=== PATIENT | male | born 1945 | race Caucasian/White ===

== ENCOUNTER 2019-07-08 14:58 | Inpatient (IN) ==
[2019-07-08] MEDS ORDERED: VERSED IV ONE ×2 (15:12→15:13)
[2019-07-08] MEDS ORDERED: NORCURON IV ONE (15:13)
[2019-07-08] MEDS ORDERED: MORPHINE IV ONE (15:15)
[2019-07-08] MEDS ORDERED: VERSED 100 MG in NS 80 ML IV SCH (15:15)
[2019-07-08] MEDS ORDERED: VERSED ONE (15:20)
--- NOTE | 2019-07-08 15:24 | Diag Imaging Result Doc PS360 ---
EXAM: CHEST-1 VIEW 07/08/2019 HISTORY: ET TUBE placement TECHNIQUE: AP portable supine at 1518 COMMENT: There is an endotracheal tube with its tip slightly below the thoracic inlet and an NG tube with its tip in the stomach. There is no evidence of acute cardiac or pulmonary disease. There are no previous studies. The regional skeleton appears to be intact. IMPRESSION: No evidence of acute disease. Electronically signed by Mani Santos 07/08/2019 3:22 PM
[2019-07-08] MEDS ORDERED: NS 1,000 ML ONE (15:26)
[2019-07-08] MEDS ORDERED: STERILE WATER INJ. ONE (15:27)
[2019-07-08 15:33] LABS: ALLEN TEST YES; BE -3.8 mmoll (-3.0-3.0); BLOOD TYPE ARTERIAL; HCO3-(ACT) 21.9 mmoll (20.0-26.0); METHB 0.8 % (0.0-1.5); O2(CT) 20.9 mL/dL (15.0-23.0); O2HB 95.7 % (95.0-99.0); PCO2(98.6) 36 mmHg (35-45); PO2(98.6) 92 mmHg (60-100); SAMPLE BLOOD; SAO2 97.6 % (95.0-100.0); SRATE 18 BPM; THB 15.5 g/dL (11.5-17.4); TVOL 550 mL; pH(98.6) 7.37 (7.35-7.45)
[2019-07-08 15:34] LABS: MODALITY VENTILATOR
[2019-07-08 15:41] LABS: BASO# 0.06 X1000 (0.0-0.2); BASO% 0.3 % (0.0-0.8); EOS# 0.12 X1000 (0.0-0.7); EOS% 0.6 % (0.0-10.0); IMM GRAN% 0.5 % (0.0-0.5); LYMPH# 4.21 X1000 (1.2-3.4); LYMPH% 21.3 % (20.5-51.1); MCH 28.1 PG (27-31); MCHC 33.3 g/dL (33-37); MCV 84.2 FL (81-99); MONO# 1.35 X1000 (0.11-0.59); MONO% 6.8 % (1.7-9.3); MPV 10.8 FL (7.4-10.4); NEUT# 13.91 X1000 (1.4-6.5); NEUT% 70.5 % (42.2-75.2); PLT 389 X1000 (130-400); RBC 6.06 XMIL (4.7-6.1); RDW 13.5 % (11.5-14.5); WBC 19.75 X1000 (4.8-10.8)
[2019-07-08 15:46] LABS: INR 1.04; PROTIME 13.7 Seconds (11.0-16.0)
[2019-07-08 15:59] LABS: ALB/GLOB RATIO 1.6; ALBUMIN 4.5 g/dL (3.5-5.0); CALCIUM 10.1 mg/dL (8.8-10.2); CREATININE 1.3 mg/dL (0.7-1.2); TOTAL BILIRUBIN 0.99 mg/dL (0.20-1.00); TOTAL PROTEIN 7.3 g/dL (6.3-8.3)
--- NOTE | 2019-07-08 16:06 | Diag Imaging Result Doc PS360 ---
EXAM: CT HEAD W/O CONTRAST 07/08/2019 HISTORY: syncope, cardiac arrest TECHNIQUE: This exam was performed using automated exposure control, adjustment of mA or kV according to patient size, and/or use of iterative reconstruction technique. COMMENT: There is no evidence of mass effect, bleed, or abnormal extra-axial fluid collection. The calvarium is intact. The visualized paranasal sinuses are clear. There are no previous studies. IMPRESSION: No evidence of acute intracranial disease. Electronically signed by Mani Santos 07/08/2019 4:04 PM
[2019-07-08] MEDS ORDERED: ZOSYN 4.5 GM in NS 100 ML IV ONE (16:40)
[2019-07-08] MEDS ORDERED: POTASSIUM CHLORIDE 40 MEQ/SWI 40 MEQ/100 ML IVPB IV ONE (16:43)
[2019-07-08] MEDS ORDERED: POTASSIUM CHLORIDE 40 MEQ in 1/2 NS 1,000 ML IV SCH (16:45)
[2019-07-08] MEDS ORDERED: DIPRIVAN 1% 1,000 MG/100 ML BOTTLE ONE (16:56)
[2019-07-08] MEDS: DIPRIVAN 1% 1,000 MG/100 ML BOTTLE IV SCH ×4 (16:59→23:49)
[2019-07-08] MEDS ORDERED: ZOFRAN IV PRN (17:02)
[2019-07-08] MEDS ORDERED: LOVENOX SUBQ SCH (17:02)
[2019-07-08] MEDS ORDERED: MORPHINE IV PRN (17:02)
[2019-07-08] MEDS ORDERED: ASPIRIN ONE (17:05)
[2019-07-08 17:22] LABS: CHOLESTEROL 212 mg/dL (0-200); HDL 39 mg/dL (35-55); LDL 142 mg/dL; TRIGLYCERIDES 153 mg/dL (39-160); VLDL 31 mg/dL
[2019-07-08 17:26] LABS: HEMOGLOBIN A1C 6.9 % (4.8-6.0)
--- NOTE | 2019-07-08 17:43 | PROVIDER DOCUMENTATION ---
This chart was entered by Alessia Avila Scribe, acting as scribe for Orion Smith DO. HPI-Cardiopulmonary Arrest - General Chief Complaint: Full Arrest Stated Complaint: FULL ARREST Time Seen by Provider: 07/08/19 14:58 Source: patient, EMS ([facility]) Unable to obtain history due to:: urgency Allergies/Adverse Reactions: Allergies Allergy/AdvReac Type Severity Reaction Status Date / Time venlafaxine Allergy ANAPHYLAXIS Verified 07/08/19 18:41 Home Medications: Home Medication List Medication Instructions Recorded Confirmed Last Taken Type Amlodipine Besylate 5 mg PO BID 07/08/19 07/08/19 Unknown History Cyanocobalamin (Vitamin B-12) 1,000 mcg PO DAILY 07/08/19 07/08/19 Unknown History [Cyanocobalamin] Insulin Aspart [Novolog] 8 unit SQ DIRECTED 07/08/19 07/08/19 Unknown History Insulin Glargine,Hum.rec.anlog 34 unit SQ QHS 07/08/19 07/08/19 Unknown History [Lantus Solostar] Lisinopril 40 mg PO DAILY 07/08/19 07/08/19 Unknown History Omeprazole 40 mg PO DAILY 07/08/19 07/08/19 Unknown History Pramipexole Di-HCl [Pramipexole 1 mg PO QHS 07/08/19 07/08/19 Unknown History Dihydrochloride] Prednisone 5 mg PO DIRECTED 07/08/19 07/08/19 Unknown History - History of Present Illness-C/P Arrest Initial Comments: per ems unknown aged male was outside cutting grass when had sudden onset of chest pain. pt came into the house and 911 was called. once ems AOS pt was in vfib, diaphoretic, n/v, chest pain and bilateral arm pain. pt was speaking to the medic when he became unresponsive and went into full arrest. pt was shocked x2 and CPR was started and lasted about 30 seconds. pt then had ROSC Reason for Code Blue?: full arrest Witnessed arrest?: Yes (by medic with [facility]) Noted by:: other (medic) Bystander CPR?: No CPR initiated before doctor arrival?: Yes (pt was in medic care when arrest occured) Down-time before ACLS?: see above Down-time before ACLS? (in minutes, if known): 0 Initial Findings: V. Fib, agonal respirations Treatment initiated prior to doctor arrival?: Initiated oxygen, Initiated BVM, Initiated CPR/thumper (30 seconds by medic on scene), Initiated defibrillated (x2) Similar Symptoms Previously?: No Recently seen or treated by another doctor?: No - Pre-hospital Treatment EMS Initial Findings:: decreased respirations EMS Initial BP: 195/80 EMS Initial EKG Rhythm: V fib then into arrest Pre-hospital Treatment: Initiated oxygen, Initiated BVM, Initiated CPR, Initiated defibrillated Review of Systems - Adult - REVIEW OF SYSTEMS - ADULT ROS:: per ems Constitutional: reports: no symptoms reported Eyes: reports: no symptoms reported Ears, Nose, Mouth & Throat: reports: no symptoms reported Cardiovascular: reports: see HPI, chest pain (per ems). denies: palpitations, syncope Gastrointestinal: reports: see HPI, nausea, vomiting Genitourinary: reports: no symptoms reported Musculoskeletal: reports: no symptoms reported Integumentary: reports: no symptoms reported Neurological: denies: dizziness/vertigo, headache/migraines Psychiatric: reports: no symptoms reported Endocrine: reports: see HPI, excessive sweating Hematologic/Lymphatic: reports: no symptoms reported Allergic/Immunologic: reports: no symptoms reported All Other Systems: Reviewed and Negative Past History - Adult - PAST MEDICAL HISTORY-ADULT Review of Records: reports: Nursing Assessment Review Major Childhood Illnesses: reports: denies history Cardiovascular: reports: denies history Respiratory: reports: denies history Gastrointestinal: reports: denies history Genitourinary: reports: denies history Musculoskeletal: reports: denies history Neurological: reports: denies history Psychiatric: reports: denies history Endocrine/Immune: reports: denies history Other Conditions: reports: denies history - IMMUNIZATION STATUS Childhood Immunizations: See Nurse Assessment Flu Vaccine: See Nurse Assessment - FAMILY HISTORY Family History: reviewed, not pertinent - SOCIAL HISTORY Smoking: non-smoker Substance Use: none/never Alcohol Use Frequency: never Living Situation: family Physical Exam-General - PHYSICAL EXAM-ADULT Initial Vital Signs Reviewed: Yes - CONSTITUTIONAL General Appearance: severe distress (prior intubation), obese, obtunded - EYES Eyes: PERRL/EOMI - HEAD, EARS, NOSE, MOUTH & THROAT HENMT: moist mucous membranes, dental decay - NECK Neck: normal inspection - RESPIRATORY Respiratory: chest non-tender, lungs clear, normal breath sounds, respiratory distress - CARDIOVASCULAR Cardiovascular: normal peripheral pulses, regular rate, rhythm - GASTROINTESTINAL (ABDOMEN) Abdominal Exam: normal bowel sounds, soft - MUSCULOSKELETAL Back Exam: other Extremity: other (same as above pt is obtunded) - SKIN Integumentary: warm/dry, pallor - PSYCHIATRIC Psych/Mental Status: other (obtunded) Progress - PLAN OF CARE/RESULTS Progress/Plan/Lab Results: Vital Signs - 8 hr 07/08/19 14:59 07/08/19 15:24 Pulse Rate 86 Respiratory Rate 19 Blood Pressure 142/93 O2 Sat by Pulse Oximetry 100 98 Laboratory Results - last 24 hr 07/08/19 07/08/19 07/08/19 15:01 15:01 15:01 WBC 19.75 H RBC 6.06 Hgb 17.0 Hct 51.0 MCV 84.2 MCH 28.1 MCHC 33.3 RDW Std Deviation 13.5 Plt Count 389 MPV 10.8 H Immature Gran % (Auto) 0.5 Neut % (Auto) 70.5 Lymph % (Auto) 21.3 [place] % (Auto) 6.8 Eos % (Auto) 0.6 Baso % (Auto) 0.3 Immature Gran # (Auto) 0.10 H Neut # (Auto) 13.91 H Lymph # (Auto) 4.21 H [place] # (Auto) 1.35 H Eos # (Auto) 0.12 Baso # (Auto) 0.06 PT 13.7 INR 1.04 Specimen Type Sample Site pH pCO2 pO2 HCO3 Base Excess Oxyhemoglobin ABG O2 Sat (Calculated) ABG O2 Saturation ABG Carboxyhemoglobin ABG Methemoglobin Jeb Test A-a O2 Difference Total Hemoglobin Lactate Blood Gas Modality Vent Mode Spontaneous Rate FiO2 % Tidal Volume PEEP Sodium 142 Potassium 3.0 L Chloride 104 Carbon Dioxide 17 L Anion Gap 21 BUN 24 H Creatinine 1.3 H Estimated GFR/1.73 m2 49 BUN/Creatinine Ratio 18 Glucose 252 H Estimat Average Glucose Hemoglobin A1c Calculated Osmolality 296 Calcium 10.1 Magnesium Total Bilirubin 0.99 AST 34 ALT 47 H Alkaline Phosphatase 103 Troponin T Total Protein 7.3 Albumin 4.5 Globulin 2.8 Albumin/Globulin Ratio 1.6 Triglycerides Cholesterol LDL Cholesterol VLDL Cholesterol, Calc HDL Cholesterol Coronary Risk Interp 07/08/19 07/08/19 07/08/19 15:01 15:01 15:01 WBC RBC Hgb Hct MCV MCH MCHC RDW Std Deviation Plt Count MPV Immature Gran % (Auto) Neut % (Auto) Lymph % (Auto) [place] % (Auto) Eos % (Auto) Baso % (Auto) Immature Gran # (Auto) Neut # (Auto) Lymph # (Auto) [place] # (Auto) Eos # (Auto) Baso # (Auto) PT INR Specimen Type Sample Site pH pCO2 pO2 HCO3 Base Excess Oxyhemoglobin ABG O2 Sat (Calculated) ABG O2 Saturation ABG Carboxyhemoglobin ABG Methemoglobin Jeb Test A-a O2 Difference Total Hemoglobin Lactate Blood Gas Modality Vent Mode Spontaneous Rate FiO2 % Tidal Volume PEEP Sodium Potassium Chloride Carbon Dioxide Anion Gap BUN Creatinine Estimated GFR/1.73 m2 BUN/Creatinine Ratio Glucose Estimat Average Glucose 151 Hemoglobin A1c 6.9 H Calculated Osmolality Calcium Magnesium 2.2 Total Bilirubin AST ALT Alkaline Phosphatase Troponin T < 0.010 Total Protein Albumin Globulin Albumin/Globulin Ratio Triglycerides Cholesterol LDL Cholesterol VLDL Cholesterol, Calc HDL Cholesterol Coronary Risk Interp 07/08/19 07/08/19 15:01 15:24 WBC RBC Hgb Hct MCV MCH MCHC RDW Std Deviation Plt Count MPV Immature Gran % (Auto) Neut % (Auto) Lymph % (Auto) [place] % (Auto) Eos % (Auto) Baso % (Auto) Immature Gran # (Auto) Neut # (Auto) Lymph # (Auto) [place] # (Auto) Eos # (Auto) Baso # (Auto) PT INR Specimen Type ARTERIAL Sample Site R RADIAL pH 7.37 pCO2 36 pO2 92 HCO3 21.9 Base Excess -3.8 L Oxyhemoglobin 95.7 ABG O2 Sat (Calculated) 20.9 ABG O2 Saturation 97.6 ABG Carboxyhemoglobin 1.10 ABG Methemoglobin 0.8 Jeb Test YES A-a O2 Difference 220.0 Total Hemoglobin 15.5 Lactate 3.20 H Blood Gas Modality VENTILATOR Vent Mode A/C Spontaneous Rate 18 FiO2 % 50.0 Tidal Volume 550 PEEP 5.0 Sodium Potassium Chloride Carbon Dioxide Anion Gap BUN Creatinine Estimated GFR/1.73 m2 BUN/Creatinine Ratio Glucose Estimat Average Glucose Hemoglobin A1c Calculated Osmolality Calcium Magnesium Total Bilirubin AST ALT Alkaline Phosphatase Troponin T Total Protein Albumin Globulin Albumin/Globulin Ratio Triglycerides 153 Cholesterol 212 H LDL Cholesterol 142 VLDL Cholesterol, Calc 31 HDL Cholesterol 39 Coronary Risk Interp 5.00 Orders Category Date Time Status Activity - Up with Assistance ORDERED Care 07/08/19 17:02 Completed Nursing- MD Consult Request ROUTINE Care 07/08/19 16:41 Completed Nursing- MD Consult Request ROUTINE Care 07/08/19 16:42 Completed MD [Physician/Provider Consults] Routine Cons 07/08/19 16:40 Ordered MD [Physician/Provider Consults] Routine Cons 07/08/19 16:41 Ordered NPO Diet 07/08/19 17:02 Active CHEST-1 VIEW [RAD] Stat Exams 07/08/19 15:[address] HEAD W/O CONTRAST [CT] Stat Exams 07/08/19 15:[address] THORAX W/O CONTRAST [CT] Stat Exams 07/08/19 17:02 Ordered A1C HGB W EST AVG GLUCOSE [CHEM] Stat Lab 07/08/19 15:01 Completed ABG [RESP] Routine Lab 07/08/19 15:24 Completed BLOOD CULTURE [BLDCUL] Stat Lab 07/08/19 17:54 Received CBC WITH ELECTRONIC DIFF [HEME] Stat Lab 07/08/19 15:01 Completed COMPREHENSIVE METABOLIC PANEL [CHEM] Stat Lab 07/08/19 15:01 Completed LACTATE, PLASMA [CHEM] Stat Lab 07/08/19 17:56 Completed LIPID PROFILE W/CALC LDL [LIPIDS] Stat Lab 07/08/19 15:01 Completed MAGNESIUM [CHEM] Stat Lab 07/08/19 15:01 Completed PROTIME WITH INR [COAG] Stat Lab 07/08/19 15:01 Completed TROPONIN T Stat Lab 07/08/19 15:01 Completed URINALYSIS W/POSS RFLX CULT [URINALYSIS] Stat Lab 07/08/19 16:44 Uncollected 0.9% Sodium Chloride Inj [Ns] 1,000 ml Med 07/08/19 15:26 Discontinued .ROUTE As directed 0.9% Sodium Chloride Inj [Ns] 1,000 ml Med 07/08/19 17:02 Active IV 100 mls/hr 0.9% Sodium Chloride Inj [Ns] 80 ml Med 07/08/19 15:15 Discontinued Midazolam [Versed] 100 mg IV As Directed mls/hr Acetaminophen [Ofirmev 1000 mg/Isotonic Soln] Med 07/08/19 17:02 Active 1,000 mg in 100 ml IV Q6H PRN Ceftaroline Fosamil [Teflaro] 600 mg Med 07/08/19 17:02 Active 0.9% Sodium Chloride Inj [Ns] 250 ml IV Q12H Enoxaparin [Lovenox] Med 07/08/19 17:02 Active 40 mg SUBQ Q24H Midazolam [Versed] Med 07/08/19 15:20 Discontinued 5 mg .ROUTE .STK-MED ONE Midazolam [Versed] Med 07/08/19 15:12 Discontinued 5 mg IV NOW ONE Midazolam [Versed] Med 07/08/19 15:13 Discontinued 5 mg IV NOW ONE Morphine Med 07/08/19 17:02 Active 2 mg IV Q3H PRN PRN Morphine Med 07/08/19 15:15 Discontinued 4 mg IV NOW ONE Ondansetron [Zofran] Med 07/08/19 17:02 Active 4 mg IV Q4H PRN PRN Piperacillin/Tazobactam [Zosyn] 4.5 gm Med 07/08/19 16:40 Discontinued 0.9% Sodium Chloride Inj [Ns] 100 ml IV NOW Potassium Chloride 40 Meq/Swi Med 07/08/19 16:43 Active 40 meq in 100 ml IV ONCE Propofol [Diprivan 1%] Med 07/08/19 16:56 Discontinued 1,000 mg in 100 ml .ROUTE As directed Propofol [Diprivan 1%] Med 07/08/19 16:45 Active 1,000 mg in 100 ml IV As Directed mls/hr Sodium Chloride 0.45% Inj [1/2 Ns] 1,000 ml Med 07/08/19 16:45 Active Potassium Chloride 40 meq IV 125 mls/hr Vecuronium [Norcuron] Med 07/08/19 15:13 Discontinued 10 mg IV NOW ONE Water, Sterile Inj [Sterile Water Inj] Med 07/08/19 15:27 Discontinued 10 ml .ROUTE .STK-MED ONE Ventilator Order Stat Oth 07/08/19 15:26 Active Transfer/Admit Order [TRANSFER] Routine Transfer 07/08/19 16:52 Ordered 1456 pt arrived in ED with ROSC. pt has mumbling speech and is confused. pt has shallow breathing and being suctioned with secretions. pt has BP 142/[address] smith is at bedside when pt comes in to the er @ 1456. the call is made to intubate pt to secure his airway by dr smith and done with first attempt @ 1506. pt has 8 tube with 22 @ lip line. pt has no gurggling, color change and bilateral equal breath sounds. dr smith paged dr emery cardiology to put a plan inplace for POC of this pt. family is not at ed as of now 1523. Result Diagrams: 07/08/19 15:01 07/08/19 15:01 - REASSESSMENT Reassessment #1 Time Reassessed: 15:29 (after intubation pt has secured airway and vitals are improving) Status: improving Reassessment #2 Time Reassessed: 16:29 (pt is in bed with nurse at bedside) Status: unchanged Reassessment #3 Time Reassessed: 16:44 (dr smith went to speak with of pt in family room but was not there. he will give a few minutes then go speak with her if she is present) Status: unchanged - EKG 1 Time of EKG reading by physician:: 15:05 EKG Read and Signed by:: Orion Smith EKG Interpretation (*Must complete 3 of following elements*): Abnormal Rate: 90 Rhythm: sinus rhythm with marked sinus arrhythmia QRS: other (low voltage QRS) [place] Interval: normal ST Wave: depressed (v3 v6) Comments: marked st abnormlaity, poss inferior subendocardial injury 2 Time of EKG reading by physician:: 15:30 EKG Read and Signed by:: Orion Smith EKG Interpretation (*Must complete 3 of following elements*): Abnormal Rate: 84 Rhythm: nsr [place]: normal QRS: normal [place] Interval: normal Comments: poss lateral infarct, age udetermined no stemi - XRAY 1 XRAY: Bilateral XRAY Study: Chest Impression: See EMR Report (EXAM: CHEST-1 VIEW 07/08/2019 HISTORY: ET TUBE placement TECHNIQUE: AP portable supine at 1518 COMMENT: There is an endotracheal tube with its tip slightly below the thoracic inlet and an NG tube with its tip in the stomach. There is no evidence of acute cardiac or pulmonary disease. There are no previous studies. The regional skeleton appears to be intact. IMPRESSION: No evidence of acute disease. Electronically signed by Mani Santos 07/08/2019 3:22 PM 07/08/19 1522 Interpreting Physician: Mani Santos MD Dictated Date/Time: 07/08/19 1521 cc: Orion Smith DO; None,PCP) - CT/MRI 1 CT Study: Head Impression: See EMR Report (EXAM: CT HEAD W/O CONTRAST 07/08/2019 HISTORY: syncope, cardiac arrest TECHNIQUE: This exam was performed using automated exposure control, adjustment of mA or kV according to patient size, and/or use of iterative reconstruction technique. COMMENT: There is no evidence of mass effect, bleed, or abnormal extra-axial fluid collection. The calvarium is intact. The visualized paranasal sinuses are clear. There are no previous studies. IMPRESSION: No evidence of acute intracranial disease. El ectronically signed by Mani Santos 07/08/2019 4:04 PM 07/08/19 1604 Interpreting Physician: Mani Santos MD Dictated Date/Time: 07/08/19 1603 cc: Orion Smith DO; None,PCP) - CONSULTS/PCP/HOSPITALIST Notification #1 *Consult/PCP/Hospitalist*: dr emery cardio Time Discussed: 15:34 (will consult with hospitalist) Reason/Comments: phone consult #2 Consult: hospitalist Time Discussed: 16:38 ([facility] Consult Disposition: Admit Procedures - INTUBATION Time of Intubation: 15:06 Airway Evaluation: Copious Secretions Intubation Method: orotracheal Equipment: Glidescope Tube Size (cm): 8.0 Pretreated with 100% Oxygen?: Yes Breath Sounds after Intubation: equal ETT Primary Tube Confirmation: Capnometry CO2 Change, Direct Visualization, Chest Rise and Fall, Tube placement verified on XRAY Intubation Complications: no complications Vent Settings: See Respiratory Therapy Notes Departure - Departure Date of Disposition Decision: 07/08/19 Time of Disposition Decision: 16:43 DIAGNOSIS: Cardiac arrest, Respiratory distress, Hypokalemia, V tach Leukocytosis Qualifiers: Leukocytosis type: other Qualified Code(s): D72.828 - Other elevated white blood cell count Disposition: ADMITTED INPATIENT 09 Certified Medical Emergency: Emergent Condition: Serious - Critical Care Note This patient required my direct & personal management of CC.: Yes Total Time (mins): 60 Critical Care Statement: This patient required my direct personal management to treat or rule out processes, the absence of which, could potentiallly result in sudden, clinically significant life or limb threatening deterioration. Attestation - Physician/ GIULIANA Attestation Patient care was provided by Advanced Practice Provider:: No The physician spent face to face time with patient:: Yes Advanced Practice Provider documentation review:: Supervising physician onsite and consulted in the evaluation and care of this patient. The physician did have a face to face encounter with the patient. This chart was documented by the indicated scribe, (Alessia Avila Scribe) and accurately reflects the services I performed and decisions made by , Orion Smith DO, as attested by the provider's signature.
[2019-07-08] MEDS ORDERED: AMIDATE IV ONE (18:38)
[2019-07-08] MEDS ORDERED: QUELICIN IV ONE (18:39)
[2019-07-08] MEDS ORDERED: ATROPINE SYRINGE IV ONE (18:41)
[2019-07-08] MEDS ORDERED: ATROPINE IV ONE (18:41)
--- NOTE | 2019-07-08 19:40 | HISTORY AND PHYSICAL ---
PRIMARY CARE PROVIDER: Located in [place] at the [facility], Dr. Castaneda CHIEF COMPLAINT: Cardiac arrest. HISTORY OF PRESENT ILLNESS: Mr. Hollis Verduzco is a 73-year-old male with a medical history of hypertension, diabetes, neuropathy and chronic pain syndrome due to degenerative disk disease. Also with history of a chest pain event around 2 years ago at [facility], where he stayed for 2 days. The at the bedside denies him having a left heart catheterization or full cardiac evaluation at that time. Prior to today states that he has been having some swelling in all of his extremities for about a month. He has had chills and sweats at night, but that has gone on for years. Recently he was on a prednisone taper for back pain, but otherwise had no complaints of chest pain or palpitations. No complaints of shortness of breath. Essentially no other complaints. The events of today was that they went to [employer] and they came home around 1 p.m. They ate, and then he went outside to mow. She states he did at least 3 or 4 turns in the yard before he got off and went into the sun room to sit in the chair in the AC. She noted that he was profusely sweating and short of breath. He did not state having chest pain at that time. He just could not get comfortable. She helped him up. He lied down on the living room floor where he stayed for about 10 minutes, and then assisted himself to the sofa and continued to not be able to get comfortable at that time. He requested her to call for help, and the paramedics came to see him. His vital signs were stable. She says the blood pressure may have been mildly elevated. Due to the fact that he has been to [place] in the past, that is where they were going to take him this time, except for [place] to [place] he developed sudden cardiac arrest, which required him to be shocked twice and have some CPR at that time. They did have return of spontaneous circulation, but due to this event it changed his route to come here to [facility]. He was intubated, and now he is actually starting to wake up, opening his eyes to voice command, purposefully moving his arms. He is still pretty sedate from the propofol. All information was obtained from the . Laboratory data: The magnesium is normal, but his potassium level is low at 3.0. It could be that he had a low potassium level and with the diffuse sweating, etc., this could have been a cause for ventricular tachycardia arrest, which was what was reported as the presenting rhythm that caused the cardiac arrest. It could be several other causes, but he is here for stabilization and cardiac workup. PAST MEDICAL HISTORY: 1. Hypertension. 2. Diabetes mellitus type 2. 3. Neuropathy. 4. Degenerative disk disease and chronic pain syndrome in the spine. 5. Two years ago was at [facility] for chest pain for around 2 days. I believe there was no definitive diagnosis at that time. We may have to request records for that. 6. GERD. PAST SURGICAL HISTORY: 1. Left foot surgery. 2. Full teeth extraction. SOCIAL HISTORY: He is a very smart man; he helped with development of the [employer]. He helped with nuclear heart pacers. He helped develop the first burn mattress. 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 Currently he has one daughter who is a microbiologist, and apparently she knows several other subspecialties. Her [id number] is a superintendent building in [place] somewhere. His is currently at the bedside, and they will have been for 50 years. She states that he does not drink or smoke. No illicit drug use. If he does drink it is a very rare occasion. He is ex-, was a [place] . FAMILY HISTORY: Mother had diabetes and a heart attack at 79. Father at 75 had some sort of rare liver cancer. Apparently this is a genetic issue, and their children have to be tested for it every so often. ALLERGIES: Venlafaxine, which caused complete anaphylaxis and cardiac arrest in the past. I believe he was stabilized in another state for that. HOME MEDICATIONS: 1. Lantus 34 units subcutaneous nightly. 2. Pramipexole 1 mg p.o. nightly. 3. Amlodipine besylate 5 mg p.o. twice daily. 4. Vitamin B12, 1000 mcg p.o. daily. 5. Lisinopril 40 mg p.o. daily. 6. NovoLog 8 units subcutaneously before dinner. 7. Omeprazole 40 mg p.o. daily. 8. Prednisone taper, and that is for his chronic back pain. REVIEW OF SYSTEMS: Unable to obtain. PHYSICAL EXAMINATION: VITAL SIGNS: Temperature currently has not been recorded. Pulse 86, respiratory rate 19, blood pressure 142/93, O2 saturation 98% to 100% on mechanical ventilation. GENERAL: Mr. Hollis Verduzco is a 73-year-old male. He is currently sedated and mechanically ventilated. He is having purposeful movement with hands to the endotracheal tube, grabbing the rail, opening eyes to voice. HEENT: Orally intubated. Otherwise pupils are equal and reactive. There are no traumatic injuries. His mucous membranes are dry. NECK: Trachea midline. CARDIOVASCULAR: S1, S2. Regular rate and rhythm. No rubs, gallops or murmurs. Trace lower extremity edema. Dorsalis and radial pulses +2. Negative for JVD or carotid bruits. PULMONARY: Clear to auscultation. Bilateral breath sounds. Mechanically ventilated. GASTROINTESTINAL: Soft, does not facial grimace to palpation. Positive bowel sounds x4. NG tube to low wall suction. GENITOURINARY: Combs catheter with clear yellow urine. EXTREMITIES: He is spontaneously moving his extremities. Strength cannot be tested as he is not yet following commands, but he is purposefully moving extremities. Range of motion unable to be tested. NEUROLOGIC: Pupils equal and reactive. He is not following commands, but he has spontaneous purposeful movements. He will open his eyes to voice, and he will track temporarily, but he is currently sedated with propofol. He has had several doses of Versed. SKIN: Warm, dry, intact. LABORATORY DATA: White blood cells 19,000, hemoglobin 17, hematocrit 51, platelet count 389,000. INR is 1.04. ABGs on mechanical ventilation assist-control, rate 18, 50%, tidal volume 550 with a PEEP of 5. PH 7.37, pCO2 is 36, pO2 is 92, bicarbonate 21, base excess -3.8, saturation 95%. Lactate on that is 3.2. Sodium 142, potassium 3.0, BUN 24, creatinine is 1.3, glucose 252. Hemoglobin A1c is 6.9. Calcium 10.1, magnesium 2.2, bilirubin 0.99, AST 34, ALT 47. Troponin less than 0.01. Albumin 4.5. Triglycerides 153, total cholesterol is 212, LDL 142, HDL 39. DIAGNOSTIC DATA: Chest x-ray: No acute disease. Endotracheal tube in place, NG tube in stomach. Head CT: No acute findings. EKGs: There were some ST depressions in the precordial leads on the first EKG. Those all resolved by the second EKG, which was within 45 minutes of each other. Those EKGs have not uploaded into the computer system yet. ASSESSMENT AND PLAN: 1. Ventricular tachycardia, cardiac arrest witnessed by emergency medical technologist chief, with immediate response and cardiac shock x2 with cardiopulmonary resuscitation and return of spontaneous circulation. He was also intubated during this time. He had received atropine at one point in time when he was here for a little bradycardia. Cardiology, Dr. Lyles, was consulted by the emergency room physician. Cause is possible from hypokalemia. The potassium level is 3.0. Could be from heat exhaustion. There could be a cardiac or coronary disease process. Currently cardiac enzymes are negative x1 set. He will be on telemetry in the intensive care unit for close observation. 2. Dehydration with acute kidney injury. He is getting intravenous fluid hydration. We will recheck BUN and creatinine in the morning. 3. History of hypertension. We will monitor for now. May resume some of his home medications. 4. Acute respiratory failure secondary to cardiac arrest. Currently mechanically ventilated. He is waking up quite well. He is on propofol at this time, but he has no pulmonary history and hopefully should be an easier wean and extubate. We will get Pulmonology involved to manage mechanical ventilation. I feel that if the propofol is off he would be much more appropriate, as he was very appropriate as far as pulling at the tube, but he was heavily sedated. He did open his eyes. He was tracking, he just could not stay awake. 5. Leukocytosis with lactic acidosis. Possible sepsis. Source unknown. We do not have a urinalysis yet. Chest x-ray has no acute findings. Blood cultures have been obtained. It is likely inflammatory secondary to dehydration and cardiac arrest, but he has been started on antibiotic therapy. We will follow up on all cultures. 6. Diabetes mellitus type 2. We will do pattern blood glucoses, sliding scale insulin. His hemoglobin A1c is 6.9. 7. Hypokalemia. He is receiving potassium supplementation, at least 40 mEq right now. 8. Chronic pain syndrome with neuropathy and degenerative disk disease. He has p.r.n. morphine for now. 9. Deep venous prophylaxis. Dictated by PÉREZ Hussein for Jd Jung MD Addendum: Patient seen and examined by myself. Agree with PÉREZ note. It reflects my assessment and plan. Patient is being admitted to hospital for cardiac arrest. He had an episode of ventricular fibrillation and was shocked twice. He is intubated now. Will call cardiology and pulmonary and will monitor patient closely. Critical care time: 40 minutes cc: PÉREZ Hussein MD [facility]
[2019-07-08] MEDS ORDERED: ZOSYN 3.375 GM in NS 50 ML IV SCH (20:29)
[2019-07-08] MEDS ORDERED: HEPARIN 25,000 UNIT in NS 250 ML IV SCH (21:15)
[2019-07-08] MEDS: TEFLARO 600 MG in NS 250 ML IV SCH (21:30)
[2019-07-08] MEDS ORDERED: LIPITOR NG SCH (21:45)
[2019-07-08] MEDS: HUMULIN R SUBQ SCH (21:52)
[2019-07-08] MEDS ORDERED: ATROPINE SYRINGE ONE (21:57)
[2019-07-08] MEDS ORDERED: HEPARIN IV SCH (22:00)
[2019-07-08] MEDS ORDERED: 1/2 NS IV SCH (22:00)
[2019-07-08] MEDS: LOPRESSOR NG SCH (22:26)
[2019-07-08] MEDS: NS 1,000 ML IV SCH (22:27)
[2019-07-08] MEDS ORDERED: 1/2 NS 1,000 ML IV ONE (22:39)
--- NOTE | 2019-07-08 23:13 | PULMONOLOGY CONSULTATION ---
DATE: 07/08/2019 REASON FOR CONSULTATION: Hypoxemic respiratory failure, status post cardiopulmonary arrest. HISTORY OF PRESENT ILLNESS: Mr. Verduzco is a 73-year-old white male, never smoker, with a 21-year history of diabetes mellitus, who was working outside mowing for less than 15 minutes when he developed chest pain. The patient called the EMS and patient was awake and alert upon arrival, but had a cardiopulmonary arrest requiring CPR. Estimated time before return of spontaneous circulation was less than 2 minutes and required 2 defibrillations. Upon arrival to the emergency room, he was lethargic but responding to pain with a mobile speech pattern. He was intubated for airway control. The patient's initial EKG revealed ST abnormalities suspicious for an inferior injury but, per Dr. Lyles's report, subsequent EKGs have improved. PAST MEDICAL HISTORY: 1. History of cardiopulmonary arrest shortly after initiating venlafaxine. 2. History of chest pain with evaluation at [facility] 2 years ago. That evaluation is not currently available. 3. Type 2 diabetes mellitus for approximately 21 years. He has been using insulin for the last 3. 4. Neuropathy, which family reports due to exposure to Agent [place]. 5. Chronic back pain. 6. Gastroesophageal reflux disease. 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 Nonsmoker. Limited alcohol use. FAMILY HISTORY: Notable for liver failure in his father. The patient's father had a lot of fatigue and drank a lot of Geritol, which is an iron supplement, he may have had hemochromatosis and several family members are followed for possible genetic liver disease. Mother of myocardial infarction at 79. PHYSICAL EXAMINATION: General: Reveals a well-developed, healthy-appearing male, resting comfortably on mechanical ventilation with sedation on propofol. Vital signs: Blood pressure 118/81, heart sounds 86, respiratory rate 18, oxygen saturation 99% on 40% FiO2. HEENT: Pupils are equal and reactive. Oropharynx appears clear. Neck: Supple. Chest: Reveals good air entry bilaterally without wheezing or rhonchi. Cardiovascular: S1, S2. Abdomen: Soft. Extremities: Without cyanosis or edema. LABORATORIES: CT scan of the head reveals no evidence of acute intracranial disease. IMAGING: Chest x-ray reveals endotracheal tube in good position with no evidence of acute disease. IMPRESSION: A 73-year-old, status post cardiopulmonary arrest, long history of diabetes mellitus, acute hypoxemic respiratory failure, with a history suspicious for significant coronary artery disease. Hemodynamically, he is doing well. The case was discussed with Dr. Lyles. The patient will be maintained overnight and mental status will be evaluated in the morning. It is anticipated that he will be transferred to [facility] tomorrow if he remains neurologically intact. PLAN: 1. One L of IV fluids this evening. Chemistries and hematology are consistent with volume contraction. 2. Continue full ventilatory support. We will wean oxygen as tolerated to prevent free radical- induced neurological injury. 3. Routine cardiac management to include aspirin, heparin, and beta-blockers. 4. Additional recommendations pending hospital course. TIME SPENT: In critical care management 30+ minutes. cc: Hollis Weeks MD
--- NOTE | 2019-07-09 00:41 | CONSULTATION ---
DATE OF CONSULTATION: 07/08/2019 IMPRESSION: 1. Status post ventricular fibrillation cardiac arrest with brief period of resuscitative efforts wall in ambulance and successful worse episcopalian of spontaneous circulation after 2 countershocks. Suspect ventricular fibrillation likely ischemic induced. 2. Previous cardiac arrest in 2011. Details not clear. Episode attributed to venlafaxine. 3. Recurrent episodes of weakness and diaphoresis. This very well may be the patient's anginal equivalent for type 2 diabetes mellitus requiring insulin for the past year. Patient has had diabetes for well over 20 years. He has associated peripheral neuropathy. 4. Chronic kidney disease with creatinine 1.3, correlating with estimated GFR of 49. 5. Hypertension. 6. Hyperlipidemia. 7. Posttraumatic stress disorder. RECOMMENDATIONS: 1. Continue supportive care ventilator. 2. Continue aspirin orally or per NG daily. 3. Initiate beta-espinoza, metoprolol. 4. Heparinize via protocol. 5. Follow up cardiac enzymes. 6. If ventricular irritability evident from a rhythm standpoint, consider initiation of amiodarone. 7. The patient will benefit from definitive evaluation with cardiac catheterization/coronary angiography. This was discussed with the patient's . Given that he very likely may need revascularization from a coronary standpoint and/or implantable defibrillator, it would be most reasonable to transfer him to [facility] tomorrow for further care. 8. Initiate statin therapy given LDL cholesterol 142. HISTORY: This 73-year-old white male with a past history of longstanding type 2 diabetes mellitus requiring insulin for the past year, hypertension, hyperlipidemia, PTSD, and previous cardiac arrest in 2012 attributed to venlafaxine, is now hospitalized after cardiac arrest. He has been having episodes where he feels weak and appears diaphoretic dating back several years. He had such episodes a couple of years ago and had what sounds like a noninvasive evaluation in [place]. He has had such episodes on a sporadic basis. Today he went out to mow his lawn with a riding mower. He did a few laps and then came back in the house feeling weak and appearing diaphoretic. He felt need to lie down. His indicates he got down on the floor for a brief period of time and then sat back up on the sofa. He expressed feeling nausea. He was feeling quite weak and ill. EMS was summoned. By the time they arrived he was feeling better. They checked his vital signs and he is reportedly okay. ECG appeared okay. They felt it best that he be brought to the emergency room for evaluation, and he was loaded on the stretcher and placed in the ambulance. They were only in route to [facility] a brief period of time [facility] when he suffered a ventricular fibrillation cardiac arrest. Record indicates that he had a relatively brief period of CPR and required defibrillation for 2 instances of ventricular fibrillation, and then had episcopalian of spontaneous circulation. On arrival to the emergency room he appeared weak and reportedly was demonstrating garbled speech. He was intubated and sedated. He has been given aspirin. His electrocardiogram on arrival here demonstrates some lateral ST depression suggesting lateral ischemia. He has subsequently been admitted to the intensive care unit. He is well oxygenated on ventilator with modest settings and has stable blood pressure and heart rate on no pressors. He is sedated with propofol. His indicates that he did indicate some chest discomfort with his symptoms, but this was not a prominent feature of today's symptoms. PAST MEDICAL HISTORY: 1. Longstanding diabetes mellitus for more than 20 years, requiring insulin for the past year. 2. Hypertension. 3. Hyperlipidemia. 4. Gastroesophageal reflux disease. 5. Posttraumatic stress disorder. PAST SURGICAL HISTORY: Includes unspecified left foot surgery for injury he obtained as he stepped off a ladder. ALLERGIES: He is allergic or intolerant to venlafaxine. MEDICATIONS PRIOR TO ADMISSION: As listed. 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 He served for approximately 6 years. 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 He has never smoked. He did drink a fair amount wall is in the [place] but does not drink. FAMILY HISTORY: Positive for what sounds like hemochromatosis. His father of cirrhosis at age 75. The patient is not known to have hemochromatosis. There is no family history of early coronary disease. REVIEW OF SYSTEMS: Not obtainable given patient is sedated on a ventilator. PHYSICAL EXAMINATION: General: This is a well-developed older white male, sedated on a ventilator. He actually does demonstrates some spontaneous arm movements as sedation is lightened, and his movements do appear purposeful. Vital signs: Blood pressure 115/80, heart rate 84, oxygen saturation 99% on ventilator with FiO2 anywhere from 24% to 40%. HEENT Exam: Mucous membranes moist. Neck: Supple. There is no significant jugular venous distention. There are no carotid bruits. Chest: Clear to auscultation anteriorly. Cardiac Exam: Reveals a regular rate and rhythm without appreciable murmur, rub or gallop. Abdomen: Soft. Bowel sounds audible. Extremities: Without edema. EKG: Initial 12 lead EKG was reviewed and demonstrates sinus rhythm and lateral ST depressions with prominence suggesting lateral ischemia. Repeat ECG shows improvement in ST changes. LABORATORY DATA: Includes a white blood cell count of 19.75, hematocrit of 51.2, hemoglobin 17.0, platelet count 389,000. ProTime 13.7. INR 1.04. Sodium 142, potassium 3.9, chloride 104, carbon dioxide 17, BUN 24, creatinine 1.3, glucose 252. Hemoglobin A1c 6.9. Magnesium 2.2. Troponin T less than 0.01. Total cholesterol 212, triglycerides 153, LDL cholesterol 142, HDL cholesterol 39. cc: Abhi Lyles MD
[2019-07-09 01:43] LABS: URINE SOURCE CATH
[2019-07-09 01:47] LABS: BILIRUBIN URINE NEGATIVE (NEGATIVE); BLOOD URINE TRACE (NEGATIVE); COLOR STRAW; GLUCOSE URINE NEGATIVE (NEGATIVE); KETONE URINE NEGATIVE (NEGATIVE); LEUKOCYTES URINE NEGATIVE (NEGATIVE); NITRITE URINE NEGATIVE (NEGATIVE); PROTEIN URINE NEGATIVE (NEGATIVE); SP GRAVITY URINE 1.006; TURBIDITY URINE CLEAR (CLEAR); UROBILINOGEN URINE NORMAL (NORMAL)
[2019-07-09 01:50] LABS: UR EPITHELIAL CELLS <10 /HPF (<10); URINE BACTERIA NEGATIVE /HPF; URINE RBC <10 /HPF (<10); URINE WBC <10 /HPF (<10)
[2019-07-09] MEDS ORDERED: HEPARIN IV ONE (02:30)
[2019-07-09] MEDS: ZOSYN 3.375 GM in NS 50 ML IV SCH ×2 (02:37→09:07)
[2019-07-09] MEDS: DIPRIVAN 1% 1,000 MG/100 ML BOTTLE IV SCH ×3 (04:07→10:34)
[2019-07-09] MEDS: OFIRMEV 1000 MG/ISOTONIC SOLN 1,000 MG/100 ML BOTTLE IV PRN ×2 (04:11→10:28)
[2019-07-09 04:22] LABS: ALLEN TEST YES; BLOOD TYPE ARTERIAL; HCO3-(ACT) 23.3 mmoll (20.0-26.0); METHB 1.1 % (0.0-1.5); O2(CT) 19.7 mL/dL (15.0-23.0); O2HB 95.7 % (95.0-99.0); PCO2(98.6) 31 mmHg (35-45); PO2(98.6) 94 mmHg (60-100); SAMPLE BLOOD; SRATE 15 BPM; THB 14.6 g/dL (11.5-17.4); TVOL 650 mL; pH(98.6) 7.44 (7.35-7.45)
[2019-07-09 04:23] LABS: MODALITY VENTILATOR
[2019-07-09] MEDS ORDERED: POTASSIUM CHLORIDE 40 MEQ in 1/2 NS 1,000 ML IV SCH (05:00)
[2019-07-09] MEDS ORDERED: LOPRESSOR PO SCH (05:00)
[2019-07-09 05:42] LABS: BASO# 0.03 X1000 (0.0-0.2); BASO% 0.2 % (0.0-0.8); EOS% 1.3 % (0.0-10.0); HEMATOCRIT 43.1 % (42.0-52.0); HEMOGLOBIN 14.2 g/dL (14.0-18.0); IMM GRAN# 0.06 X1000 (0.0-0.04); IMM GRAN% 0.4 % (0.0-0.5); LYMPH# 1.31 X1000 (1.2-3.4); LYMPH% 8.7 % (20.5-51.1); MCH 28.3 PG (27-31); MCHC 32.9 g/dL (33-37); MCV 85.9 FL (81-99); MONO# 1.22 X1000 (0.11-0.59); MONO% 8.1 % (1.7-9.3); MPV 10.5 FL (7.4-10.4); NEUT# 12.31 X1000 (1.4-6.5); NEUT% 81.3 % (42.2-75.2); PLT 198 X1000 (130-400); RBC 5.02 XMIL (4.7-6.1); RDW 13.7 % (11.5-14.5); WBC 15.13 X1000 (4.8-10.8)
[2019-07-09 06:11] LABS: AGAP 10; ALB/GLOB RATIO 1.5; ALBUMIN 3.4 g/dL (3.5-5.0); ALKALINE PHOSPHATASE 75 U/L (32-122); BUN 16 mg/dL (8-22); CALCIUM 8.4 mg/dL (8.8-10.2); CHLORIDE 110 mmol/L (98-107); COSMO 283; ESTIMATED GFR > 60; GLUCOSE 179 mg/dL (70-104); GOT 86 U/L (10-34); GPT 46 U/L (10-44); MAGNESIUM 1.9 mg/dL (1.5-2.7); POTASSIUM 3.9 mmol/L (3.5-5.1); SODIUM 139 mmol/L (136-145); TCO2 19 mmol/L (25-35); TOTAL BILIRUBIN 0.82 mg/dL (0.20-1.00); TOTAL PROTEIN 5.6 g/dL (6.3-8.3)
--- NOTE | 2019-07-09 07:11 | Diag Imaging Result Doc PS360 ---
EXAM: CHEST-PORTABLE 07/09/2019 HISTORY: pt on ventilator TECHNIQUE: AP portable at 0526 COMMENT: There is an endotracheal tube with its tip slightly below the thoracic inlet. There is an NG tube which passes below the diaphragm into the stomach. There is minimal platelike atelectasis in the lingula which was not present on 07/08/2019. Otherwise are has been no change. IMPRESSION: Minimal lingular atelectasis. Electronically signed by Mani Santos 07/09/2019 7:09 AM
[2019-07-09] MEDS: LOPRESSOR NG SCH (07:17)
[2019-07-09] MEDS: HUMULIN R SUBQ SCH ×2 (07:31→11:28)
[2019-07-09] MEDS: NS 1,000 ML IV SCH (08:26)
--- NOTE | 2019-07-09 08:32 | PROGRESS NOTE ---
DATE: 07/09/2019 SUBJECTIVE: The patient is sedated and intubated. As per nursing staff, overnight there has not been any issues. OBJECTIVE: Vital Signs: Temperature 99.4 degrees, heart rate 71, respiratory rate 15, blood pressure 154/88, O2 saturation 96% on mechanical ventilator at FiO2 of 21%. General Examination: This is a 73-year-old male lying in bed, sedated and intubated. HEENT: The patient is normocephalic and atraumatic, orally intubated. Pupils are reactive to light and accommodation. No traumatic injuries noted. Mucous membranes dry. Neck: No JVD noted. No carotid bruits. No lymphadenopathy. No thyromegaly. Cardiovascular: S1, S2 heard. No murmurs, gallops. No rubs. Regular rate and rhythm. Respiratory: Clear bilaterally to auscultation. Some transmitted sounds. The patient is not having any work of breathing or using accessory muscles. Abdomen: Soft. Nondistended. Bowel sounds present. NG tube to low wall suction. Genitourinary: Combs catheter with clear urine. Extremities: No clubbing or cyanosis. Mild trace edema noted. Peripheral pulses present in both legs. Neurological: Patient is sedated and intubated. LABORATORY DATA: White cell count 15.13, hemoglobin 14.2, hematocrit 43.1, platelets 198,000. ABG shows pH of 7.44 with pCO2 31 with PO2 of 94, that was on ventilator FiO2 21%. BMP reveals normal creatinine 1.0 with calcium 8.4. Troponin 1.3, but at admission was 0.010. Cholesterol is 212. ASSESSMENT AND PLAN: 1. Status post cardiac arrest secondary to ventricular fibrillation. The patient received a brief period of resuscitation in the ambulance and he had taoism of spontaneous circulation after 2 shocks. The patient has been evaluated by Cardiology. They think that this ventricular fibrillation could be ischemic induced. Today the troponins are very elevated from normal, yesterday at 3.3 at 3:30 and today they were checked, was 1.3 at 3 a.m. today. We expect some elevation secondary to chest compressions, but this is extremely elevated at this point. In any case, we are going to check it 2 more times and will go from there. As we mentioned before, Cardiology is following this patient. Yesterday after he was intubated, patient was following basic commands, so considering that according to Cardiology, he may need revascularization from coronary standpoint and/or implantable defibrillator, the plan from Cardiology is to transfer him to [facility] today for further care. He has been started on statins for LDL elevated. He is on heparin drip. Also on beta-blockers and aspirin. 2. Acute respiratory failure secondary to cardiac arrest. The ABG shows with gas exchange actually the patient is on 21% of oxygen. Dr. Weeks from Pulmonary is following this patient. Will see if he can be extubated today. Mental status seems to be good just right after the episode of cardiac arrest. 3. Acute kidney injury secondary to dehydration. After we provided IV fluids kidney function is completely back to normal. 4. Leukocytosis with lactic acidosis. We do not know this patient has a pneumonia. The x-ray done on admission showed no evidence of acute disease, but we have ordered yesterday at [address] of the chest that has not been done yet. Will see what it shows and will go from there. 5. Diabetes mellitus type 2. Will continue with sliding scale insulin and Accu-Chek every 4 hours. 6. Hypokalemia. The potassium is completely back to normal. Magnesium is 1.9 today which is normal. 7. Chronic pain syndrome with neuropathy and degenerative disk disease. Patient is on p.r.n. morphine for now. 8. Deep vein thrombosis prophylaxis. Patient is on heparin drip. 9. Disposition. As we mentioned before, the patient will be transferred to [facility] for further care considering that he may need revascularization and/or implantable AICD. cc: Jd Jung MD
[2019-07-09] MEDS ORDERED: ASPIRIN NG SCH (09:00)
[2019-07-09] MEDS: TEFLARO 600 MG in NS 250 ML IV SCH (09:43)
--- NOTE | 2019-07-09 09:57 | EKG Report ---
Test Performed on : 07/09/2019 09:07:24 AM Test Reason : s/p cardiac arrest Blood Pressure : / mmHG Vent. Rate : 060 BPM Atrial Rate : 060 BPM P-R Int : 188 ms QRS Dur : 086 ms QT Int : 438 ms P-R-T Axes : 050 -60 046 degrees QTc Int : 438 ms Sinus rhythm. with premature atrial complexes. with aberrant conduction. Low voltage QRS Left anterior fascicular block Abnormal ECG When compared with ECG of 08-JUL-2019 15:20, (Unconfirmed) aberrant conduction. is now present Borderline criteria for Lateral infarct are no longer present ST no longer depressed in Anterior leads Nonspecific T wave abnormality, improved in Anterolateral leads Confirmed by Federica Cr MD ([id number]) on 07/09/2019 1:00:58 PM
--- NOTE | 2019-07-09 10:01 | EKG Report ---
Test Performed on : 07/08/2019 3:20:16 PM Test Reason : ED. No order in [place] Blood Pressure : / mmHG Vent. Rate : 084 BPM Atrial Rate : 084 BPM P-R Int : 178 ms QRS Dur : 094 ms QT Int : 402 ms P-R-T Axes : 057 -66 056 degrees QTc Int : 475 ms Normal sinus rhythm. Left anterior fascicular block Possible Lateral infarct , age undetermined Abnormal ECG No previous ECGs available Unconfirmed Result
[2019-07-09 12:17] VITALS: BP 147/79
--- NOTE | 2019-07-09 14:07 | PROGRESS NOTE ---
DATE: 07/09/2019 SUBJECTIVE: Patient continues on ventilator and sedated. When sedation is lightened, he demonstrates purposeful movements. OBJECTIVE: Vital Signs: Blood pressure 145/80, heart rate 64 and regular, with ECG monitor showing sinus rhythm, oxygen saturation 95% on the ventilator with FiO2 of 21%. There is no significant jugular venous distention. Chest is clear to auscultation. Cardiac examination reveals a regular rate and rhythm without appreciable murmur or gallop. There is no evidence of peripheral edema. Laboratory Data: Includes a white blood cell count of 15.13, hematocrit 43.1, hemoglobin 14.2, platelet count 198,000. Sodium 139, potassium 3.9, chloride 110, carbon dioxide 19, BUN 16, creatinine 1.0, glucose 179. Initial CPK less than 0.01, followup CPK 1.30 and 2.33. Repeat 12 lead EKG this morning demonstrates sinus rhythm with occasional premature ventricular complex and left anterior fascicular block. Echocardiography preliminarily demonstrates normal left ventricular ejection fraction. No wall motion abnormality appreciated. IMPRESSION: 1. Status post ventricular fibrillation cardiac arrest with favorable resuscitation efforts promptly. 2. Previous cardiac arrest in 2011. 3. Recurrent episodes of weakness/diaphoresis. Suspect this may be angina equivalent. 4. Small non-ST elevation myocardial infarction. Possibly cardiac arrest but cannot exclude underlying ischemic heart disease. 5. Chronic kidney disease with a creatinine of 1.3. 6. Hypertension. 7. Hyperlipidemia. 8. Type 2 diabetes mellitus. RECOMMENDATIONS: 1. Continue current supportive care. 2. Continue beta espinoza, oral aspirin, and intravenous heparin. 3. The patient would benefit from further evaluation with cardiac catheterization and selective coronary angiography. This was again discussed with the patient's and with his daughter. They are wishing to proceed. Arrangements have been made for patient to be transferred to [facility] for further care. 4. Continue statin therapy for hyperlipidemia. cc: Abhi Lyles MD
--- NOTE | 2019-07-09 14:10 | PULMONOLOGY PROGRESS NOTE ---
DATE: 07/09/2019 SUBJECTIVE: The patient is sedated and comfortable on mechanical ventilation. The patient's nurse performed a sedation vacation earlier, and he will open his eyes. OBJECTIVE: Vital Signs: Maximum temperature in the last 24 hours was 99.7 degrees at 8 a.m. this morning, blood pressure 152/77, heart rate 66, respiratory rate 15, oxygen saturation 95% on 21% on mechanical ventilation. HEENT: Pupils are equal and reactive. Oropharynx appears clear. Neck: Supple. Chest: Good air entry bilaterally. Cardiac: S1, S2. Abdomen: Soft. Extremities: Without edema. DIAGNOSTIC STUDIES: Chest x-ray reveals minimal atelectasis at the left base. Arterial blood gas reveals a pH of 7.44, pCO2 of 31, PO2 of 94. Sodium 139, potassium 3.9, chloride 110, bicarbonate 19, BUN 16, creatinine 1.0. Troponin 2.33. IMPRESSION: A 73-year-old, status post: 1. Cardiopulmonary arrest. 2. Acute hypoxemic respiratory failure which is resolving. 3. Acute renal insufficiency which is resolving. 4. Mild hepatic transaminitis/shock liver. 5. Cardiac ischemia with significant coronary artery disease suspected. DISCUSSION: A 73-year-old with problems outlined above. The patient has a long history of diabetes mellitus and presented with classical chest pain/cardiac arrest. Significant coronary artery disease is suspected. RECOMMENDATION: 1. Anticipate transfer to [facility] for definitive cardiac catheterization today. 2. Additional recommendations pending hospital course. CRITICAL CARE MANAGEMENT: 30+ minutes. cc: Hollis Weeks MD
--- NOTE | 2019-07-09 15:00 | DISCHARGE SUMMARY ---
ADMISSION DATE: 07/08/2019 DISCHARGE DATE: 07/09/2019 DATE OF DISCHARGE AND TRANSFER TO [facility]: 07/09/2019. ADMISSION DIAGNOSES: 1. Ventricular tachycardia with cardiac arrest witnessed by EMT with immediate response, shock and return of spontaneous circulation. 2. Dehydration with acute kidney injury. 3. History of hypertension. 4. Acute respiratory failure secondary to cardiac arrest. 5. Leukocytosis with lactic acidosis. 6. Diabetes mellitus type 2. 7. Hypokalemia. This has resolved. 8. Chronic pain syndrome with neuropathy and degenerative disk disease. DISCHARGE DIAGNOSES: 1. Ventricular tachycardia with cardiac arrest witnessed by EMT with immediate response, shock and return of spontaneous circulation. 2. Dehydration with acute kidney injury. 3. History of hypertension. 4. Acute respiratory failure secondary to cardiac arrest. 5. Leukocytosis with lactic acidosis. 6. Diabetes mellitus type 2. 7. Hypokalemia. This has resolved. 8. Chronic pain syndrome with neuropathy and degenerative disk disease. CONSULTATIONS: 1. Pulmonary Dr. Weeks. 2. Cardiology Dr. Lyles. PAST SURGICAL PROCEDURES: None. HOSPITAL COURSE: Mr. Hollis Verduzco is a 73-year-old male with a medical history of hypertension, diabetes, neuropathy, chest pain in the past, and at that time was seen by [facility]. He is now here after experiencing a cardiac arrest event. According to his , who was at the bedside and speaking for the patient, he mowed, came in, was diaphoretic, uncomfortable, short of breath, and just overall did not feel well. Called EMS, and the patient's vital signs were stable but precautionary. They were going to take him to [facility], but he experienced a ventricular tachycardic arrest requiring shock x2 and CPR. When he had return of spontaneous circulation, he was taken here to [facility]. He was intubated here after being altered with garbled speech. EKG first showed some ST depressions. A second EKG showed improvement so there were some signs of ischemia but he also had a low potassium level which was replaced. Cardiology saw him, and felt like he needed to be sent to [facility] for further cardiac evaluation such as left heart catheterization. Mechanically ventilated. He was managed by Dr. Weeks. He was essentially weaned down to room air. The patient was sedated during his intubation. At this point, he is now transferred to [facility]. It was noted that he had leukocytosis. There were no obvious signs of a source of infection. He felt like it was mostly inflammatory but received antibiotics anyway's. It is noted that he did have an elevation in his troponin's, and there is concern that possibly he has a non STEMI, and it could have possibly been elevated due to the chest compressions. So, he was started on a heparin drip while he was here along with aspirin beta espinoza, and statin. VITAL SIGNS: Temperature 99.7 degrees, heart rate 62, respiratory rate 15, blood pressure 147/79, O2 saturation 96% on the mechanical ventilator. LABORATORY DATA: White blood cells 15,000, hemoglobin 14, hematocrit 43, and platelet count 198,000. PTT 159.1. A pH 7.44, pCO2 31, PO2 94, bicarb 23 and base excess -2. Saturation 95%. Lactate 1.3. Sodium 139, potassium 3.9, BUN 16, creatinine is 1.0, glucose 179, calcium 8.4, magnesium 1.9, bilirubin 0.82, AST 86, ALT 46, and troponin 2.33. Urinalysis trace blood, otherwise negative. IMAGIN. Chest x-ray: No acute disease. 2. Head CT: No acute disease. 3. Another chest x-ray on the : No acute disease. It did show minimal lingular atelectasis. 4. EKG normal sinus rhythm. Rate was 84. QTc 475. On that one, it did not show any of the ST depressions. There is another EKG that should be on his chart that showed that he did have ST depressions on presentation. TRANSFER MEDICATIONS: 1. Insulin 34 units subcutaneous nightly. 2. Pramipexole 1 mg p.o. nightly. 3. Amlodipine besylate 5 mg p.o. twice daily. 4. Vitamin B12 1000 mcg p.o. daily. 5. Lisinopril 40 mg p.o. daily. 6. Insulin aspartate 8 units before dinner. 7. Omeprazole 40 mg p.o. daily. 8. Prednisone taper. Those medications were his medications that he was on when he was admitted. MEDICATIONS DURING HOSPITAL STAY: 81 mg of aspirin per NG daily, Lipitor 40 mg per NG nightly, ceftaroline IV q.12 hours, heparin drip per protocol, and sliding scale insulin, metoprolol 25 mg per NG every 8 hours, p.r.n. morphine, p.r.n. Zofran, Zosyn 3.375 IV q.6 hours, potassium chloride in a L at 75 mL an hour. He was on a propofol drip. ACTIVITY: Bedrest until extubated. DIET: Currently was NPO. DISCHARGE PHYSICIAN FOLLOW UP: He will need to follow up with his primary and Cardiology, or any other recommendations that [facility] will have. DISCHARGE DISPOSITION: He will be transferred to [facility] that occurred at 11:50 in the morning on 07/09/2019. Dictated by PÉREZ Hussein for Jd Jung MD Addendum: Patient seen and examined by myself. Agree with PÉREZ note. It reflects my assessment and plan. Patient is being transferred to [facility] for further care. cc: PÉREZ Hussein MD [facility]
--- NOTE | 2019-07-09 16:50 | ECHO REPORT ---
ORDER DATE: 07/08/2019 MEASUREMENTS: Septal thickness 0.8 cm, left ventricular internal diameter in diastole 4.8 cm, posterior wall thickness 0.8 cm, left ventricular internal diameter in systole 3.4 cm, aortic root 3.5, left atrium 3.4 cm. SUMMARY: 1. Technically difficult study due to limited acoustic window quality. Intravenous echo contrast agent Optison was utilized to enhance endocardial definition. 2. The aortic valve is without evidence of structural abnormality and opens adequately on 2- dimensional images. Peak gradient across the aortic valve was less than 10 mmHg. Mitral and tricuspid valves are without evidence of structural abnormality while pulmonic valve was not well demonstrated. There is mild mitral regurgitation and mild tricuspid regurgitation. The estimated systolic PA pressure by Doppler is 45 to 50 mmHg, suggesting mild pulmonary hypertension. The aortic root is normal in size. 3. Normal left ventricular dimensions demonstrated. Estimated left ventricular ejection fraction appears to be at least 60%. No regional wall motion abnormalities are evident. Left atrium, right atrium, and right ventricle are normal in size with grossly preserved right ventricular systolic function. 4. No pericardial effusion. 5. Inferior vena cava's appearance suggests elevated central venous pressure, but findings are nonspecific in this patient on ventilator at time of the study. CONCLUSIONS: 1. Technically difficult study. 2. Mild mitral regurgitation. 3. Mild tricuspid regurgitation with mild pulmonary hypertension by Doppler. 4. Estimated left ventricular ejection fraction at least 60% without regional wall motion abnormality evident. cc: MD Jd Staples MD
== END 2019-07-09 11:50 | disposition short-term general hospital (02) | DRG 280 ==
LOC: SUPCPDRO → EDBD 14:58 → ED 14:58 → ICU 17:03
PROVIDERS: ATTEND Internal Medicine